=== PATIENT | male | born 1980 | race Caucasian/White ===

== ENCOUNTER 2020-08-07 13:36 | Outpatient (REF) | payer SELFPAY | END 2020-08-07 13:37 | disposition home or self-care (01) | LOC: HO.LAB 13:36 | PROVIDERS: Visit Provider Internal Medicine | DX: Z20.828 Contact with and (suspected) exposure to other viral communicable diseases (principal) | CPT/HCPCS: C9803; U0003 ==

== ENCOUNTER 2023-04-16 12:15 | Emergency (ER) | payer OTHER, SELFPAY ==
--- NOTE | ~2023-04-16 | XR_ITS ---
EXAMINATION: XR CHEST CLINICAL INFORMATION: Cough. COMPARISON: None available. TECHNIQUE: 2 views of the chest were obtained. FINDINGS: No significant abnormality is noted involving the heart, lungs, mediastinum, bony thorax or soft tissues. XR/XR chest 2V IMPRESSION: No acute cardiopulmonary process.
--- NOTE | 2023-04-16 13:03 | ED_ITS ---
HPI - General Adult General Chief complaint: General Medical Stated complaint: multiple symptoms Time Seen by Provider: 04/16/23 14:58 Source: patient and RN notes reviewed Mode of arrival: ambulatory Limitations: no limitations History of Present Illness HPI narrative: This is a 42-year-old male presenting to the emergency department for evaluation of productive cough, body aches and low back pain x 1 week. Patient reports that he also has had a sore throat. Denies any fevers, chills, abdominal pain, nausea,. No shortness of or chest pain. He has been taking [id number] cold medication without any relief. No known sick contacts. No other complaints or concerns at this time. MD complaint: Cough Onset (ago): week(s) Radiation: non-radiation Quality: aching Pain Consistency: constant Relieving factors: none Exacerbating factors: none Associated symptoms: cough Treatments prior to arrival: none Related Data Previous Rx's Medication Instructions Recorded acetaminophen 325 mg tablet 650 mg PO Q6H PRN pain #30 tabs 04/16/23 (Tylenol) benzonatate 200 mg capsule 200 mg PO TID PRN cough #14 caps 04/16/23 ibuprofen 600 mg tablet 600 mg PO Q6H PRN pain #30 tabs 04/16/23 Allergies Allergy/AdvReac Type Severity Reaction Status Date / Time No Known Allergies Allergy Unverified 06/01/20 17:18 [facility] Social History Social History Advance Directives: No Advance Directives Information Provided: No Physical Exam ED Vital Signs: Vital Signs - 24 hr 04/16/23 13:07 Temperature 96.0 F L Pulse Rate 61 Respiratory Rate 18 Blood Pressure 133/72 Pulse Oximetry 98 Oxygen Delivery Method Room Air BMI result Body Mass Index 22.7 Course Course Course Narrative: This is an RME: Additional HPI, ROS, PE not included below will be deferred to primary provider. This is a 89-cefu-ifo-male presenting to the emergency department with complaints of sore throat, body aches and productive cough x 3 days. Neices are sick with similar symptoms. VSS. Plan: flu, covid, strep, CXR Medical Decision Making Lab Data Labs: Lab Results 04/16/23 04/16/23 04/16/23 Range/Units 13:13 13:13 13:13 COVID-19 ([facility]) Negative (Negative) COVID-19 Clin Com See Note Influenza Type A ([facility]) Negative (Negative) Influenza Type B ([facility]) Negative (Negative) Influenza A & B Note See Note S. pyogenes GrpA [facility] Negative (Negative) Discharge Plan Discharge Clinical Impression: Upper respiratory virus, Scalp cyst Patient Disposition: Home, Self-Care Instructions: Upper Respiratory Infection (ED), Cyst (ED) Additional Instructions: Your COVID, flu, and strep test were negative today. Your chest x-ray did not show pneumonia. Your symptoms are likely due to a virus which will resolve on its own. Please drink plenty of fluids and get plenty of rest. Take prescribed medication as directed. If any new or worsening symptoms occur including but not limited to, chest pain, shortness of breath or worsening symptoms please return for re-evaluation. You also have a cyst on the left side of your scalp. Please follow-up with the preferred surgeon for removal. Call to make an appointment Prescriptions: New acetaminophen [Tylenol] 325 mg tablet 650 mg PO Q6H PRN (Reason: pain) Qty: 30 0RF ibuprofen 600 mg tablet 600 mg PO Q6H PRN (Reason: pain) Qty: 30 0RF benzonatate 200 mg capsule 200 mg PO TID PRN (Reason: cough) Qty: 14 0RF Referrals: [facility] [place] [facility] [Provider Group] Stand Alone Forms: Work/School Release Interventions: ED Discharge Assessment Last Done: 04/16/23 15:10 Discharge Date/Time: 04/16/23 15:10
[2023-04-16 13:07] VITALS: BP 133/72; PULSE 61; RESP 18; TEMP 35.6; O2SAT 98; BMI 22.7
[2023-04-16 13:29] LABS: IDNOW Serial# 08D9AD1C; Strep A Nucleic Acid Negative (Negative)
[2023-04-16 13:34] LABS: COVID-19 Test Negative (Negative); IDNOW Serial# BCCEAD1C
[2023-04-16 13:41] LABS: IDNOW Serial# 9DB6401D; Influenza A Negative (Negative); Influenza B2 Negative (Negative)
== END 2023-04-16 15:10 | disposition home or self-care (01) ==
PROVIDERS: Physician Assistant Medical; Emergency Provider Emergency Medicine
DX: J06.9 Acute upper respiratory infection, unspecified (principal); L72.9 Follicular cyst of the skin and subcutaneous tissue, unspecified; Z20.822 Contact with and (suspected) exposure to COVID-19; Z20.828 Contact with and (suspected) exposure to other viral communicable diseases; Z79.899 Other long term (current) drug therapy
CPT/HCPCS: 71046; 87502; 87635; 87651; 99282; 99283

== ENCOUNTER 2023-06-26 23:54 | Emergency (ER) | payer OTHER, SELFPAY ==
--- NOTE | ~2023-06-26 | XR_ITS ---
EXAMINATION: XR ankle LT min 3V, XR foot LT min 3V CLINICAL INFORMATION: Reason for Exam pain s/p injury COMPARISON: None. TECHNIQUE: AP and oblique views of the left ankle AP and oblique views of the left foot Lateral view of the left foot / ankle FINDINGS: No acute fracture or dislocation. Ankle mortise is congruent. Talar dome intact. Soft tissues unremarkable. XR/XR ankle LT min 3V IMPRESSION: No acute fracture or dislocation.
--- NOTE | ~2023-06-26 | XR_ITS ---
EXAMINATION: XR ankle LT min 3V, XR foot LT min 3V CLINICAL INFORMATION: Reason for Exam pain s/p injury COMPARISON: None. TECHNIQUE: AP and oblique views of the left ankle AP and oblique views of the left foot Lateral view of the left foot / ankle FINDINGS: No acute fracture or dislocation. Ankle mortise is congruent. Talar dome intact. Soft tissues unremarkable. XR/XR foot LT min 3V IMPRESSION: No acute fracture or dislocation.
[2023-06-27 00:01] VITALS: BP 160/98; PULSE 66; O2SAT 96; BMI 22.7
[2023-06-27 00:07] VITALS: BP 117/70; PULSE 61; TEMP 36.9; O2SAT 99
--- NOTE | 2023-06-27 00:07 | ED.LOWEXIN ---
HPI - Extremity Injury (Lower) General Chief Complaint: Extremity Injury, Lower Stated Complaint: FOOT PAIN Time Seen by Provider: 06/26/23 23:56 Source: patient, EMS, RN notes reviewed and old records reviewed Mode of arrival: EMS History of Present Illness HPI Narrative: 43-year-old male with no significant past medical history presenting to the ED complaining of left foot pain s/p accidentally kicking a metal table at work [employer]. Admits he was wearing Crocs shoes. Has been ambulatory with pain. Reports inability to move toes secondary to pain. Denies injury to other area, numbness/ tingling, weakness complaint: foot injury Related Data Previous Rx's Medication Instructions Recorded acetaminophen 325 mg tablet 650 mg (2 x 325 mg) PO Q6H PRN 04/16/23 (Tylenol) pain #30 tabs benzonatate 200 mg capsule 200 mg PO TID PRN cough #14 caps 04/16/23 ibuprofen 600 mg tablet 600 mg PO Q6H PRN pain #30 tabs 04/16/23 Allergies Allergy/AdvReac Type Severity Reaction Status Date / Time No Known Allergies Allergy Unverified 06/01/20 17:18 Review of Systems Review of Systems: Constitutional: No Fever, No Chills Cardiovascular: No Chest Pain, No SOB Respiratory: No Cough, No Sputum Gastrointestinal: No Nausea, No Vomiting, No Abdominal pain Musculoskeletal: + joint pain, No Myalgias, + Joint Swelling Skin: No Skin Lesions, No rash Neuro: No Weakness, No Numbness, No Paresthesias Yes all other systems are reviewed and are negative Constitutional: Constitutional: Reports as per [facility] Past Medical History Attestation statement: The following information was validated with the patient. Source: old records reviewed Social History Social History Advance Directives: No Advance Directives Information Provided: No Physical Exam Vital Signs: Vital Signs: Last Vital Signs Temp 98.4 F 06/27/23 00:07 Pulse 61 06/27/23 00:07 BP 117/70 06/27/23 00:07 Pulse Ox 99 06/27/23 00:07 O2 Del Method Room Air 06/27/23 00:07 BMI result Body Mass Index 22.7 Const: General: cooperative, healthy appearing and no acute distress Orientation/consciousness: patient oriented x3 Limitations: no limitations HEENT: Head: Yes normal to inspection and Yes atraumatic Ears: hearing grossly normal bilaterally General nose exam: Normal external nose present Face and sinus: Yes normal facial exam Eyes: General: appearance normal, both eyes and all related structures EOM: EOMs intact bilaterally Neck: Neck: Yes normal visual inspection and Yes no meningeal signs Resp: Effort & Inspection: normal respiratory effort and no respiratory distress Cardio: Rate: regular rate Peripheral pulses: popliteal pulses present Skin: Rashes: no rashes Wounds: no wounds Neuro: General: patient oriented x3, tone normal and no meningeal signs Cranial nerves: Yes CN's II-XII intact bilaterally Gait exam (Neuro): Normal gait present Extrem: Other: Left great toe with mild swelling, diffusely tender to palpation. Limited ROM to metatarsals secondary to pain. No ecchymosis / erythema or warmth. Ankle with mild swelling, nontender. Range of motion intact. Neurovascular intact. No crepitus Course Course Course Narrative: XR foot LT min 3V IMPRESSION: No acute fracture or dislocation. XR ankle LT min 3V IMPRESSION: No acute fracture or dislocation. > Sahil wrap applied. patient is supplied with crutches. Results discussed with patient including worrisome signs and symptoms and strict return precautions, and when to return to the emergency department. They verbalized understanding and feel safe for discharge at this time. Medications Administered Discontinued Medications Generic Name Dose Route Start Last Admin Trade Name Freq PRN Reason Stop Dose Admin Ketorolac Tromethamine 30 mg 06/27/23 00:26 06/27/23 00:36 Ketorolac Tromethamine 30 Mg/Ml Vial IM 06/27/23 00:27 30 mg ONCE ONE Administration Medical Decision Making Medical Decision Making [facility] Narrative: 43-year-old male with no significant past medical history presenting to the ED complaining of left foot pain s/p accidentally kicking a metal table at work [employer]. on exam vital signs stable, NAD, nontoxic appearing for physical exam as above. Concern for contusion versus sprain versus fracture. Low suspicion for septic joint/arthritis or Achilles injury plan: X-rays, IM Toradol Please refer to course for remaining clinical decision making, interpretation of labs/imaging results, and discussions with consultants and/or family members. Differential Diagnosis Differential Diagnoses: The differential diagnosis associated with the presentation includes As above Independent Interpretation I performed an independent interpretation of an: Plain X-Ray Radiology Impression Discussion of test interpretation with radiology: I have reviewed the radiologist's reading. Independent Historian Clinical information obtained from an independent historian. History obtained from or confirmed by: EMS External Record Review External record reviewed: Inpatient record, Office record, Outpatient record, Prior outpatient labs, Prior outpatient radiology, Primary care record and Outside ED record Tests considered The following testing was considered but not selected: As above Prescription Management I considered prescription management with: Pain Medication Discharge Plan Discharge Clinical Impression: Foot sprain Patient Disposition: Home, Self-Care Instructions: Foot Sprain (ED), Ice Pack Application (ED) Additional Instructions: your x-rays are negative. Wear Sahil wrap for compression /stability. Ice and elevate Take Tylenol Motrin Use crutches as needed Follow-up with your doctor Rest Prescriptions: No Action acetaminophen [Tylenol] 325 mg tablet 650 mg PO Q6H PRN (Reason: pain) Qty: 30 0RF ibuprofen 600 mg tablet 600 mg PO Q6H PRN (Reason: pain) Qty: 30 0RF benzonatate 200 mg capsule 200 mg PO TID PRN (Reason: cough) Qty: 14 0RF Referrals: Physician,None [Primary Care Provider] - Stand Alone Forms: Work/School Release
[2023-06-27] MEDS: Ketorolac Tromethamine 30 MG/ML VIAL IM (00:36)
== END 2023-06-27 01:35 | disposition home or self-care (01) ==
PROVIDERS: Emergency Provider Emergency Medicine
DX: S93.602A Unspecified sprain of left foot, initial encounter (principal); W22.03XA Walked into furniture, initial encounter; Y93.9 Activity, unspecified; Y92.511 Restaurant or cafe as the place of occurrence of the external cause; Y99.0 Civilian activity done for income or pay
CPT/HCPCS: 73610; 73630; 96372; 99284; J1885